=== PATIENT | male | born 1990 | race Hispanic/Latino ===

== ENCOUNTER 2021-06-04 09:16 | Emergency (ER) | payer OTHER, SELFPAY ==
[2021-06-04 09:32] VITALS: BP 138/71; PULSE 62; RESP 22; TEMP 36.3; O2SAT 99; BMI 25.1
--- NOTE | 2021-06-04 12:15 | DI.RAD.S_ITS ---
PROCEDURE: XR LUMBAR SPINE 2-3V INDICATIONS: low back pain TECHNIQUE: 3 views of the lumbar spine were acquired. COMPARISON: None. FINDINGS: Bones: 5 [id number] vertebrae are present. There is normal bony alignment. No vertebral body compression fractures. No suspicious bony lesions. Soft tissues: Overlying bowel gas pattern is normal. No suspicious soft tissue calcifications. IMPRESSION: No fracture. No osseous lesion. If symptoms and/or clinical suspicion for pathology persists, evaluation with MRI should be considered for further assessment. Dictated by: Mary Aggarwal MD, PhD on 06/04/2021 at 12:54 Approved by: Mary Aggarwal MD, PhD on 06/04/2021 at 12:56
--- NOTE | 2021-06-04 12:16 | ED.BACK ---
HPI - Back Pain/Injury <Clif Stahl PA-C - Last Filed: 06/04/21 13:20> General Chief Complaint: Back Pain/Injury Stated Complaint: Pain and tingling in back Time Seen by Provider: 06/04/21 12:06 Source: patient History of Present Illness HPI Narrative: Patient is a 30-year-old male who presents to the ED complaining of sudden onset lower back pain that started yesterday while at work. 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 No prior history of back problems. No recent surgery or trauma reported. He denies any dysuria no fever no cough shortness of breath chest pain nausea vomiting diarrhea. Right patient denies any radiation of pain no report of radiculopathy paresthesia or paralysis reported. Related Data Previous Rx's Medication Instructions Recorded cyclobenzaprine 10 mg tablet 10 mg PO Q8H PRN #21 tab 06/04/21 ibuprofen 800 mg tablet 800 mg PO Q8H PRN #21 tab 06/04/21 Allergies Allergy/AdvReac Type Severity Reaction Status Date / Time No Known Drug Allergies Allergy Verified 06/04/21 09:37 Review of Systems <Clif Stahl PA-C - Last Filed: 06/04/21 13:20> Review of Systems ROS Unobtainable: All systems reviewed & are unremarkable except as noted in HPI and below Constitutional Constitutional: Denies chills, Denies fatigue, Denies fever(s), Denies frequent falls, Denies lethargy and Denies weakness Eyes Eyes: Denies change in vision, Denies eye discharge, Denies irritation and Denies loss of vision ENT Ears, Nose, Mouth, and Throat: Denies change in voice, Denies dizziness, Denies neck pain, Denies sore throat and Denies throat swelling Cardiovascular Cardiovascular: Denies chest pain, Denies irregular heart rhythm, Denies lightheadedness, Denies palpitations, Denies dyspnea, Denies dyspnea on exertion and Denies orthopnea Respiratory Respiratory: Denies cough, Denies dyspnea, Denies dyspnea on exertion and Denies wheezing Gastrointestinal Gastrointestinal: Denies abdominal pain, Denies change in bowel habits, Denies diarrhea, Denies nausea and Denies vomiting Genitourinary Genitourinary: Denies hematuria, Denies flank pain, Denies urinary incontinence and Denies urinary urgency Musculoskeletal Musculoskeletal: Reports back pain, Reports muscle weakness, Denies neck pain, Denies numbness and Denies tingling Integumentary/Breasts Skin/Breast: Denies pruritus, Denies erythema, Denies rash and Denies wounds Neurologic Neurologic: Denies behavioral changes, Denies confusion, Denies dizziness, Denies frequent falls, Denies loss of vision, Denies numbness, Denies tingling and Denies weakness Psychiatric Psychiatric: Denies anxiety, Denies behavioral changes, Denies confusion, Denies depression, Denies homicidal ideation and Denies suicidal ideation Endocrine Endocrine: Denies fatigue, Denies flushing and Denies palpitations Hematologic/Lymphatic Hematologic/Lymphatic: Denies easy bruising Allergic/Immunologic Allergic/Immunologic: Denies urticaria, Denies throat swelling and Denies wheezing Patient History <Clif Stahl PA-C - Last Filed: 06/04/21 13:20> Social History Smoking Status: Current every day smoker Smoking Status: Current every day smoker tobacco type: vaping alcohol intake frequency: 0-2 drinks per day Substance Use Type: does not use Exam <Clif Stahl PA-C - Last Filed: 06/04/21 13:20> Initial Vital Signs Initial Vital Signs: Vital Signs Temperature 97.4 F L 06/04/21 09:32 Pulse Rate 62 06/04/21 09:32 Respiratory Rate 22 06/04/21 09:32 Blood Pressure 138/71 06/04/21 09:32 Pulse Oximetry 99 06/04/21 09:32 Const General: cooperative, healthy appearing and in distress Nutritional Appearance: average body habitus and well nourished Orientation: Orientation Back/Spine/Pelvis Back: normal to inspection and back tenderness Cervical Spine: normal cervical lordosis and cervical ROM normal Thoracic/Lumbar Spine: thoracic and lumbar spine normal to inspection, thoraco-lumbar spasm and straight leg raise positive (Back pain only) Course <Clif Stahl PA-C - Last Filed: 06/04/21 13:20> Orders Ordered: ED Orders 06/04/21 12:15 XR lumbar spine 2-3V Stat Vital Signs Vital signs: Vital Signs - 8 hr 06/04/21 09:32 Temperature 97.4 F L Pulse Rate 62 Respiratory Rate 22 Blood Pressure 138/71 Pulse Oximetry 99 [facility] - Back Pain/Injury <Clif Stahl PA-C - Last Filed: 06/04/21 13:20> Differential Diagnosis Differential diagnosis: Likely strain of lumbar region Imaging Data lumbar x-ray: Radiologist's Impression: PROCEDURE:? XR LUMBAR SPINE 2-3V ? INDICATIONS:? low back pain ? TECHNIQUE:? 3 views of the lumbar spine were acquired.? ? COMPARISON:? None. ? FINDINGS:? ? Bones:? 5 [id number] vertebrae are present.? There is normal bony alignment.? No vertebral body compression fractures.? No suspicious bony lesions.? ? Soft tissues:? Overlying bowel gas pattern is normal.? No suspicious soft tissue calcifications.? ? ? IMPRESSION:? No fracture. No osseous lesion. If symptoms and/or clinical suspicion for pathology persists, evaluation with MRI should be considered for further assessment. ? ? Dictated by: Mary Aggarwal MD, PhD on 06/04/2021 at 12:54 ? ? Approved by: Mary Aggarwal MD, PhD on 06/04/2021 at 12:56?? [facility] Narrative Medical decision making narrative: Patient was evaluated and treated for low back pain x-rays do not show any abnormalities at this time anti-inflammatories muscle relaxers and follow-up with PCP is recommended. Patient will be discharged home Discharge Plan Departure Patient Disposition: Home Clinical Impression: Strain of lumbar region Instructions: DI for Back Strain or Sprain Activity Restrictions/Additional Instructions: You were seen today for low back your x-rays do not show any abnormalities at this time I sent 2 prescriptions over to your pharmacy. He should follow-up with your PCP in 1 week if not any better. Prescriptions: New cyclobenzaprine 10 mg tablet 10 mg PO Q8H PRN (Reason: muscle spasm) Qty: 21 0RF ibuprofen 800 mg tablet 800 mg PO Q8H PRN (Reason: pain) Qty: 21 0RF Stand Alone Forms: Work Release Note
== END 2021-06-04 13:29 | disposition home or self-care (01) ==
PROVIDERS: Emergency Provider Physician Assistant
DX: S39.012A Strain of muscle, fascia and tendon of lower back, initial encounter (principal); X58.XXXA Exposure to other specified factors, initial encounter; Y99.0 Civilian activity done for income or pay
CPT/HCPCS: 72100; 99283